=== PATIENT | female | born 1990 | race African-American/Black ===

== ENCOUNTER 2018-01-22 12:33 | Emergency (ER) | payer MEDICAID, OTHER ==
[~2018-01-22] VITALS: Ht 152.4 cm; Wt 43.0 kg
[~2018-01-22 12:33] MED LIST: HYDR-3533 PO; Z.0.NO CURRENT MEDS
[2018-01-22 12:39] VITALS: BP 115/56; PULSE 105; RESP 16; TEMP 99.1; O2SAT 99
--- NOTE | 2018-01-22 13:44 | PD ---
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 Denies vaginal rash or lesions. Denies foul vaginal odor. Denies fever, vomiting, abdominal pain, pelvic pain. Denies dysuria. Does not know when her last menstrual period was. Reports using condoms occasionally, but otherwise denies contraception use. Has not taken any medications or try any treatments to alleviate her symptoms. Symptoms are mild to moderate in severity. No known aggravating or relieving factors. No primary care provider. No window tinter. No known allergies. Denies significant past medical history. Has no other medical complaints. No other modifying factors or associated signs and symptoms. PFSH Past Medical History ADD: Yes ADHD: No Bipolar Disorder: Yes Depression: Yes Cancer: No Diabetes: No Diminished Hearing: No Psychiatric: Yes (BIPOLAR) Immunizations Current: Yes Migraines: No Seizures: No Thyroid Disease: No Ulcer: No ?: Unknown : 1 Para: 1 Miscarriage: 0 : 0 Ovarian Cysts: Yes (TRACY.) Past Surgical History Appendectomy: No Section: Yes (09/06/2009 - daughter) Cholecystectomy: No Other Surgery: Yes (head trauma at age 4 - requiring surgery then to release pressure per pt.) Social History Alcohol Use: Yes (SOME SIPS) Tobacco Use: Yes (1PPD) Substance Use: Yes (MARIJUANA - trying to quit smoking per pt.) Allergies-Medications (Allergen,Severity, Reaction): Coded Allergies: No Known Allergies (Verified Adverse Reaction, Unknown, 01/22/18) Reported Meds & Prescriptions Reported Meds & Active Scripts Active No Active Prescriptions or Reported Medications Review of Systems Except as stated in HPI: all other systems reviewed are Neg Physical Exam Narrative GENERAL: Well-nourished, well-developed black female patient, in no acute distress; afebrile, nontoxic-appearing SKIN: Warm and dry. HEAD: Atraumatic. Normocephalic. EYES: Pupils equal and round. No scleral icterus. No injection or drainage. ENT: Mucous membranes pink and moist. NECK: Trachea midline. No lymphadenopathy. CARDIOVASCULAR: Regular rate RESPIRATORY: No accessory muscle use. GASTROINTESTINAL: Abdomen soft, non-tender, nondistended. Bilateral pelvic region nontender to palpation. Hepatic and splenic margins not palpable. No guarding, rigidity, rebound tenderness. PELVIC: Exam done in the presence of a nurse. Speculum exam reveals large mass ; I cannot determine if this is an edematous and erythematous cervix; cannot find the cervical os; with thick, white, cottage-cheese like, non-odorous discharge. Bimanual exam reveals large palpable cervial/uterine mass; no adnexa tenderness, no uterine tenderness. No cervical motion tenderness. BACK: No CVA tenderness. MUSCULOSKELETAL: No obvious deformities. No clubbing. No cyanosis. No edema. NEUROLOGICAL: Awake and alert. No obvious cranial nerve deficits. Motor grossly within normal limits. Normal speech. PSYCHIATRIC: Appropriate mood and affect; insight and judgment normal. Data Data Last Documented VS Vital Signs Date Time Temp Pulse Resp B/P (MAP) Pulse Ox O2 Delivery O2 Flow Rate FiO2 01/22/18 12:39 99.1 105 16 115/56 (75) 99 Orders Orders Gc And Chlamydia Pcr (01/22/18 12:55) Wet Prep Profile (01/22/18 12:55) Urinalysis - C+S If Indicated (01/22/18 12:55) Ed Urine Pregnancytest Poc (01/22/18 12:55) Urine Culture (01/22/18 13:30) Metronidazole (Flagyl) (01/22/18 16:45) Ed Discharge Order (01/22/18 16:39) Labs Laboratory Tests Test 01/22/18 13:30 01/22/18 13:35 Urine Color YELLOW Urine Turbidity HAZY Urine pH 7.0 Urine Specific [place] 1.022 Urine Protein TRACE mg/dL Urine Glucose (UA) NEG mg/dL Urine Ketones TRACE mg/dL Urine Occult Blood SMALL Urine Nitrite NEG Urine Bilirubin NEG Urine Urobilinogen 4.0 MG/DL Urine Leukocyte Esterase MOD Urine RBC 38 /hpf Urine WBC 31 /hpf Urine Squamous Epithelial Cells 1 /hpf Urine Bacteria OCC /hpf Urine Mucus FEW /lpf Microscopic Urinalysis Comment CULTURE INDICATED Clue Cells (Wet Prep) NONE SEEN Vaginal Trichomonas (Wet Prep) PRESENT Vaginal Yeast (Wet Prep) NONE SEEN Chlamydia trachomatis DNA (PCR) NOT DETECTED Neisseria gonorrhoeae DNA (PCR) NOT DETECTED MDM Medical Decision Making Medical Screen Exam Complete: Yes Emergency Medical Condition: Yes Medical Record Reviewed: Yes Differential Diagnosis Cervicitis, vaginal yeast, trichomonas, chlamydia, gonorrhea, PID Narrative Course 27-year-old female with abnormal vaginal discharge and vaginal itching. On pelvic exam the patient has a large palpable and visual cervical, uterine mass. Wet prep, chlamydia, gonorrhea, UA pending. UPT negative. I will ask Dr. Gutierrez to evaluate mass. 1400: Dr. Gonzalez performed pelvic exam and recommends for the patient to follow up outpatient with CORPORATION OFFICER for evaluation. 1638: Trichomonas positive. Bacterial vaginosis and bacterial yeast negative. Chlamydia and gonorrhea negative. Flagyl 2 g administered in the ER. Urinalysis with signs of infection. Reflex to urine culture. I will wait for culture to result before treating for UTI secondary to suspecting contamination. Instructed patient to follow-up with window tinter in regards to the uterine cervical mass found on pelvic exam and follow-up. Instructed patient to follow up with primary care provider. Patient verbalizes understanding and agreement with treatment plan. Patient is medically cleared and stable for discharge. Discussed reasons to return to the emergency department. Patient agrees with treatment plan. The patients vital signs are stable and the patient is stable for outpatient follow-up and treatment. Patient discharged home, stable and in no acute distress. Diagnosis Primary Impression: Trichomoniasis Additional Impression: Mass of uterine cervix Referrals: [place] [facility] [place] [facility] Primary Care Physician Patient Instructions: General Instructions, Trichomoniasis (ED) Additional Instructions: Avoid sexual activity for 14 days No sexual activity with your partner/s until they have been treated and waited 14 days Inform all sexual partners within the past 3-6 months that they need to be evaluated and treated Use condoms every time you have sex Follow-up with primary care provider Follow-up with window tinter in regards to uterine cervical mass Return to the emergency department immediately with worsening of symptoms Med/Other Pt SpecificInfo: No Change to Meds, No Meds Exist/No RX given Scripts No Active Prescriptions or Reported Meds Disposition: 01 DISCHARGE HOME Condition: Stable Emily Dill Jan 22, 2018 13:44
--- NOTE | 2018-01-22 14:06 | PD ---
Data Data Last Documented VS Vital Signs Date Time Temp Pulse Resp B/P (MAP) Pulse Ox O2 Delivery O2 Flow Rate FiO2 01/22/18 12:39 99.1 105 16 115/56 (75) 99 Orders Orders Gc And Chlamydia Pcr (01/22/18 12:55) Wet Prep Profile (01/22/18 12:55) Urinalysis - C+S If Indicated (01/22/18 12:55) Ed Urine Pregnancytest Poc (01/22/18 12:55) Labs Laboratory Tests Test 01/22/18 13:30 01/22/18 13:35 MDM Supervised Visit with LOUISA: Yes Narrative Course I, Dr. Tucker, have reviewed the advance practice practitioner's documentation and am in agreement, met with the patient face to face, made the diagnosis, and the medical decision making was done by me. 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 Was noted to have abnormal pelvic exam which I repeated to see what was happening. She has a very enlarged masslike area involving the cervix and lower uterus. It is not tender. Recommend the patient get an outpatient gynecology follow-up which would likely include ultrasounding and other diagnostic modalities. Infectious workup underway Scripts No Active Prescriptions or Reported Meds Sae Tucker MD Jan 22, 2018 14:06
[2018-01-22 14:22] LABS: BILIRUBIN, URINE NEG (NEG); BLOOD, URINE SMALL (NEG); GLUCOSE,URINE NEG (NEG); KETONE, URINE TRACE mg/dL (NEG); MUCUS URINE FEW /lpf (OCC); NITRITE,URINE NEG (NEG); SQUAMOUS EPITHELIAL CELL URINE 1 /hpf (0-5); URINE COLOR YELLOW (YELLW/STRAW); URINE LEUKOCYTE ESTERASE MOD (NEG)
[2018-01-22 14:28] LABS: BACTERIA, URINE OCC /hpf
[2018-01-22] MEDS ORDERED: metroNIDAZOLE 500 MG TAB PO ONE (16:45)
[2018-01-22 17:02] VITALS: BP 118/60; TEMP 98.7
== END 2018-01-22 17:03 | disposition home or self-care (01) ==
LOC: NEPD 12:33
DX: A59.9 Trichomoniasis, unspecified (principal); N76.0 Acute vaginitis; B96.89 Other specified bacterial agents as the cause of diseases classified elsewhere; F98.8 Other specified behavioral and emotional disorders with onset usually occurring in childhood and adolescence; F31.9 Bipolar disorder, unspecified; F17.200 Nicotine dependence, unspecified, uncomplicated; F12.90 Cannabis use, unspecified, uncomplicated
CPT/HCPCS: 81001; 84703; 87086; 87210; 87491; 87591; 99284